=== PATIENT | male | born 1980 | race Caucasian/White ===

== ENCOUNTER 2025-03-04 08:20 | Outpatient (CLI) | payer OTHER, SELFPAY ==
--- OUTSIDE RECORDS SUMMARY | 2025-03-04 08:26 | XMS_ITS | Clinical Summary ---
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 Gender Identity Not on file Sexual Orientation Not on file Plan of Treatment Health Maintenance Due Date Last Done Comments Hepatitis C Virus (HCV) Screening 1982 TdaP Immunization 1982 Hepatitis B Immunization (1 of 3 - 19+ 3-dose series) 2001 Influenza Immunization (#1) 2024 SARS-COV-2 Immunization ( - 2023- season) 2024 Respiratory Syncytial Virus (RSV) Immunization (Adult) (1 - 1-dose 75+ series) 2057 Meningococcal Immunization (ACWY) Aged Out No longer eligible based on patient's age to complete this topic Pneumococcal Immunization Combined Aged Out No longer eligible based on patient's age to complete this topic Rotavirus Immunization Aged Out No lo nger eligible based on patient's age to complete this topic
--- OUTSIDE RECORDS SUMMARY | 2025-03-04 08:27 | XMS_ITS ---
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 Name Role Phone Juan Okeefe DO Primary Care Provider Heidi Moore Unavailable [phone] Allergies No Known Allergies Results Component Value Reference Range Notes UDT (Not yet reviewed by pro vider) Interpretation: Performing Lab: Notes/Report: THC n 0 - 50 ng/ml Cocaine n 0 - 300 ng/ml Amphetamine n 0 - 1000 ng/ml Buprenorphine (BUP) n 0 - 10 ng/ml Secobarbital (Bar) n 0 - 300 ng/ml Oxazepam (BZO) n 0 - 300 ng/ml 6-avtqaezioj-2,7-quojjvjh-5,3-diphenylpyrrolidine (PAUL P) n 0 - 300 ng/ml Methamphetamine (MET) n 0 - 1000 ng/ml Methylenedioxymethamphetamine (MDMA) n 0 - 500 ng/ml Morphine (MOP 300/[id number]) n 0 - 300 ng/ml Methadone (MTD) n 0 - 300 ng/ml Phencyclidine (PCP) n 0 - 25 ng/ml Nortriptyline (TCA) n 0 - 1000 ng/ml Oxycodone n 0 - 300 ng/ml x n 0 - 300 ng/ml REASON FOR VISIT 3 month f/u Medications Medication SIG (Take, Route, Frequency, Duration) Notes Start Date End Date Status Escitalopram Oxalate 20 MG 1 tablet Orally Once a day for 90 days increasing 03/03/2025 Active Jornay PM 60 MG 1 capsule in the evening Oral Once a day for 30 days 03/03/2025 04/02/2025 Active Social History Tobacco Use: Social History Observation Description Date Details (start date - stop date) Unknown Sex Assigned At : Social History Observation Description Sex Assigned At Male Household Question Answer Notes Marital status: Tobacco use other than smoking: Question Answer Notes Are you an other tobacco user? Yes Tobacco Control (Standard) Question Answer Notes Tobacco use: Uses tobacco in other forms When did you start smoking? 2000 When did you stop smoking? 06/02/2014 How long has it been since you last smoked? 5-10 years AUDIT-C (Standard) Question Answer Notes Did you have a drink contain ing alcohol in the past year? Yes How often did you have six o r more drinks on one occasion in the past year? Never (0 point) How many drinks did you have on a typical day when you were drinking in the past year? 1 or 2 drinks (0 point) How often did you have a dri nk containing alcohol in the past year? Monthly or less (1 point) Problems Problem Type SNOMED Code ICD Code Onset Dates Problem Status W/U Status Risk Notes Problem [id number] Major depressive disorder, single episode, mild (F32.0) Active confirmed Vital Signs Blood pressure systolic 156 mm Hg 03/03/20 25 Blood pressure diastolic 88 mm Hg 025 Heart Rate 76 /min 03/03/2025 Height 69.00 in 03/03/2025 Weight 256 lbs 03/03/2025 BMI 37.8 kg/m2 03/03/2025 Height-cm 175.26 cm 03/03/2025 Weight-kg 116.12 kg 03/03/2025 Encounters Encounter Location Date [facility] [address] [facility] [address] [place] [address] 03/03/2025 Heidi Brito Encounter for screening for depression Z13.31 ; Major depressive disorder, single episode, mild F32.0 ; Generalized anxiety disorder F41.1 ; Attention-deficit hyperactivity disorder, combined type F90.2 ; Insomnia, unspecified G47.00 ; Nicotine use Z72.0 ; Encounter for screening for cardiovascular disorders Z13.6 and Dietary counseling and surveillance Z71.3 Assessments Encounter Date Diagnosis (ICD Code) Assessment Notes Treatment Notes Treatment Clinical Notes Section Notes 03/03/2025 Encounter for screening for depression (ICD-10 - Z13.31) 03/03/2025 Major depressive disorder, single episode, mild (ICD-10 - F32.0) 03/03/2025 Generalized anxiety disorder (ICD-10 - F41.1) 03/03/2025 Attention-deficit hyperactivity disorder, combined type (ICD-10 - F90.2) 03/03/2025 Insomnia, unspecified (ICD-10 - G47.00) 03/03/2025 Nicotine use (ICD-10 - Z72.0) 03/03/2025 Encounter for screening for cardiovascular disorders (ICD-10 - Z13.6) 03/03/2025 Dietary counseling and surveillance (ICD-10 - Z71.3) 03/03/2025 Other Aj Trent, male patient with history of ADHD and depression, presents with concerns of increased sedentary behavior, mild mood symptoms, and sleep disturbances. Depressive symptoms Assessment: Patient reports increased sedentary behavior, decreased social engagement, and reduced participation in previously enjoyable activities such as exercise and music. While not explicitly feeling depressed, these symptoms suggest a possible mild depressive episode. Patient notes no specific cause and describes the symptoms as not dire or severe. Currently on escitalopram 10mg for depression management. Plan: - Increase escitalopram to 20mg PO daily - Dispense 90-day prescription to [place] [facility] - Patient instructed to break tablets in half and return to 10mg dose if unable to tolerate increase, and to call if this occurs - Follow-up in 3 months unless problems arise sooner Attention Deficit Hyperactivity Disorder (ADHD) Assessment: Patient has a history of ADHD and is currently managed on Jornay 60mg. Reports improved daytime alertness compared to 10-15 years ago when experiencing significant post-lunch fatigue. Attributes improvement to exercise and ADHD medication. Plan: - Continue Jornay 60mg Sleep disturbances Assessment: Patient reports new onset of waking in the middle of the night. notes new snoring, but patient denies feeling of gasping for air. At-home sleep study scheduled. Patient acknowledges need for weight loss, reporting recent weight gain. Plan: - Proceed with scheduled at-home sleep study Abnormal lab results Assessment: Recent labs from February [address] Calderon showed elevated white blood cell count, possibly attributed to allergies. Lipid panel revealed high LDL and low HDL cholesterol. Plan: - Follow-up blood work in 6 weeks as recommended by primary care Plan Of Treatment Medication Medication Name Sig Start Date Stop Date Notes Escitalopram Oxalate 10 MG 1 tablet at b edtime Orally Once a day Escitalopram Oxalate 20 MG 1 tablet Oral ly Once a day for 90 days 03/03/2025 increasing Jornay PM 60 MG 1 capsule in the benjamin antoinette Oral Once a day for 30 days 03/03/2025 04/02/2025 Pending Test Test Name Order Date UDT 03/03/2025 Next Appt Details Follow Up: 3 Months, Reason: Provider Name:Heidi lenz, 06/03/2025 09:30:00 AM, [address], [facility] [address], [place], [address], Progress Notes * AJ TRENTDOB: [birth year] (44 yo M)Acc No.[id number]:03/03/2025 Patient: AJ DOE Provider: Saad Brito :1980 A ge:44 Y S ex:Male Date:03/03/2025 Address:[address] [place], [place] [id number] Pcp:Juan Okeefe DO Subjective: * Chief Complaints: * 3 month f/u * HPI: H istory of Presenting Problem: 44 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 It is a reflection of a visit with the patient. It might have some inaccuracy, including medication names and transcribing errors, though efforts have been made to correct them. History of Present Illness Aj Trent, a male patient with a history of depression and ADHD, presents with concerns of increased sedentary behavior and feeling like he's on autopilot. He reports a recent decrease in activity levels and social engagement, noting he's been more antisocial, sitting around watching TV. While not explicitly feeling depressed, he acknowledges a change in his usual patterns of behavior. The patient describes a gradual onset of these symptoms, with no specific cause identified. He compares his current state to when he was happiest, which involved more exercise, playing music, and social interaction. The change in behavior is not described as severe, but rather something he has noticed recently. Aj also mentions new sleep disturbances, including waking up in the middle of the night, and feeling tired during the day. He describes this fatigue as being more subdued compared to the complete zombie feeling he experienced 10-15 years ago. Aj reports that his ADHD medication has helped with alertness in the past. He is currently taking escitalopram 10mg for depression and Jornay 60mg for ADHD. He mentions recently missing a couple of doses of escitalopram without noticing any difference. The patient denies experiencing side effects like weight gain or sexual problems with his current medication regimen. In terms of recent healthcare interactions, Aj had a visit with Dr. Calderon at Dr. Morgan's office on February 04 for blood work. He has an at-home sleep study scheduled due to recent snoring reported by his , though he denies feeling like he's gasping for air. The patient acknowledges a need to lose weight, mentioning he's been on an upswing recently. Medications and Supplements Patient is taking escitalopram 10mg and Jornay 60mg for ADHD. Patient reports missing a couple days of escitalopram recently without noticing any difference. No significant side effects from escitalopram, such as weight gain or sexual problems, which were experienced with previous medications. Patient did not notice a big effect from Lexapro (escitalopram), but was generally improving. The ADHD medication (Jornay) has helped with daytime alertness. Social History - Exercise: Recently more sedentary; previously exercised more frequently - Hobbies/Interests: Plays music, though less frequently than before; currently watching more TV - Social Interactions: Becoming more antisocial recently - Sleep: Waking up in the middle of the night (new occurrence); reports snoring (new) - Occupation: Experiences daytime fatigue, though less severe than 10-15 years ago Review of Systems General: Positive for fatigue, decreased physical activity. HEENT: Positive for snoring. Respiratory: Positive for possible sleep apnea symptoms. Neurological: Positive for daytime tiredness. Psychiatric: Positive for feeling down, antisocial behavior. C ontributing Factors: ongoing notes: Reports two past hospitalizations, for threatening suicide, or depression, not really suicidal, no attempts. [facility] Jun 2023 past meds:wellbutrin-past, doesn't recall effects; z oloft; adderall/concerta-not showing on UDS/conf;?qelbree N/V Trauma/abuse hx: Denied, I had a great childhood. hx, no combat, but in [place], no /wounds ADHD hx:Onset: c hildhood; A DHD inattention p oor ability to give close attention to details;?has difficulty sustaining attention in tasks; m akes careless mistakes at work; d oes not listen when spoken to directly; d oes not follow through on instructions; f ails to finish work; h as difficulty organizing tasks and activities; r eluctant to engage in tasks that require sustained mental effort; e asily distracted by extraneous stimuli; f orgetful in daily activities; procrastinate; C ontext: l ack of productivity at work; i ncreased anxiety. See past notes for further review -completed MUSA/RAMIREZ testing 05/11/22; t esting positive for combined type, did flag malingering, may just be severe impairment. D epression Screening: CATALINA-7 (2018 Edition) F eeling nervous, anxious, or on edge S everal days N ot being able to stop or control worrying?Several days W orrying too much about different things S everal days T rouble relaxing N ot at all B eing so restless that it is hard to sit still N ot at all B ecoming easily annoyed or irritable N ot at all F eeling afraid as if something awful might happen N ot at all T otal CATALINA-7 Score 3 I f you checked any problems, how difficult have they made it for you to do your work, take care of things at home, or get along with other people? N ot difficult at all I nterpretation of Total ( 0 to 4) No Anxiety C [place]-Suicide Severity Rating Scale: Suicide Risk (CSRS-screener) i n the past one month Have you wished you were or wished you could go to sleep and not wake up? N o i n the past one month Have you actually had any thoughts of killing yourself? N o H ave you ever done anything, started to do anything, or prepared to do anything to end your life? N o D epression screening: PHQ-9 L ittle interest or pleasure in doing things?Several days F eeling down, depressed, or hopeless S everal days T rouble falling or staying asleep, or sleeping too much S everal days F eeling tired or having little energy M ore than half the days P oor appetite or overeating N ot at all F eeling bad about yourself or that you are a failure, or have let yourself or your family down S everal T rouble concentrating on things, such as reading the newspaper or watching television S ever M oving or speaking so slowly that other people could have noticed; or the opposite, being so fidgety or restless that you have been moving around a lot more than usual N ot at all T houghts that you would be better off or of hurting yourself in some way N ot at all T otal Score 7 I nterpretation M ild Depression Intervention D epression Screening Findings P ositve F ollow-Up for Depression M ental health care management, Psychiatric follow-up S uicide Risk Assessment Performed 0 03/03/2025 __ date * Medical History: * Surgical History: T onsilectomy/adenoids 10/02/1990Appendectomy (90256) 10/02/1991Sinus surgery 10/02/2013 * Hospitalization/Major Diagno stic Procedure: * Family History: P aternal Uncle: Alcohol Abuse. M other: Major Depressive Episode. P aternal Grandfather: Alcohol Abuse. M aternal Grandmother: Major Depressive Episode. S on: Anxiety Disorder.? * Social History: T obacco Use: T obacco use other than smoking A re you an other tobacco user? Y es Tobacco Control (Standard) T obacco use: U ses tobacco in other forms W hen did you start smoking? W hen did you stop smoking? H ow long has it been since you last smoked??5-10 years M igrated Social History: M igrated Social History: Alcohol Intake: None 04/11/2022,Tobacco Years: Former smoker 04/11/2022. D rug/Alcohol: D rugs H ave you used drugs other than those for medical reasons in the past 12 months? N o AUDIT-C (Standard) D id you have a drink containing alcohol in the past year? Y es H ow often did you have six or more drinks on one occasion in the past year? N ever (0 point) H ow many drinks did you have on a typical day when you were drinking in the past year? 1 or 2 drinks (0 point) H ow often did you have a drink containing alcohol in the past year? M onthly or less (1 point) H ousehold: Alise ama Ta arital status: m arried M iscellaneous: S afety issues A re there any firearms in the house? 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 College * Medications: T akingJornay PM 60 MG Capsule Extended Release 24 Hour 1 capsule in the evening Oral Once a day , stop date 03/14/2025Escitalopram Oxalate 10 MG Tablet 1 tablet at bedtime Orally Once a day Medication List reviewed and reconciled with the patientTaking Jornay PM 60 MG Capsule Extended Release 24 Hour 1 capsule in the evening Oral Once a day , stop date 03/14/2025Taking Escitalopram Oxalate 10 MG Tablet 1 tablet at bedtime Orally Once a day Medication List reviewed and reconciled with the patient * Allergies: N .K.D.A.no[Allergies Verified] Objective: * Vitals: B P:156/88mm Hg, HR:76/min, Wt:256lbs, Wt-k.12 kg, Ht: 69.00 in, Ht-cm: 175.26 cm, BMI:37.8Index, Body Surface Area: 2.38. * Examination: P sychiatry: M ental Status Examination - Mood: Patient reports feeling down and more subdued recently, though not explicitly depressed. - Thought Process: Linear and goal-directed. - Cognition: Alert. Reports waking up in the middle of the night sometimes. Mentions feeling tired during the day, but not experiencing the complete zombie feeling he had in the past. - Insight: Fair. Recognizes changes in his behavior and mood, noting decreased activity levels and increased antisocial tendencies. - Judgment: Fair. Scheduled an at-home sleep study to address potential sleep issues. Laboratory, Imaging, and Diagnostic Test Results - Date: February 04, 2025 - CBC: WBC elevated (specific value not provided) - Lipid panel: LDL high, HDL low (specific values not provided). Assessment: * Assessment: 1. E ncounter for screening for depression - Z13.31 (Primary) 2 . M ajor depressive disorder, single episode, mild - F32.0 3 . G eneralized anxiety disorder - F41.1 4 . A ttention-deficit hyperactivity disorder, combined type - F90.2 5. I nsomnia, unspecified - G47.00 6 . N icotine use - Z72.0? 7. E ncounter for screening for cardiovascular disorders - Z13.6 ?8. D ietary counseling and surveillance - Z71.3 Plan: * Treatment: 2. A ttention-deficit hyperactivity disorder, combined type Refill Jornay PM Capsule Extended Release 24 Hour, 60 MG, 1 capsule in the evening, Oral, Once a day, 30 days, 30, Refills 0, Notes[facility]. 3. O raina Clinical Notes: Aj Trent, male patient with history of ADHD and depression, presents with concerns of increased sedentary behavior, mild mood symptoms, and sleep disturbances. Depressive symptoms Assessment: Patient reports increased sedentary behavior, decreased social engagement, and reduced participation in previously enjoyable activities such as exercise and music. While not explicitly feeling depressed, these symptoms suggest a possible mild depressive episode. Patient notes no specific cause and describes the symptoms as not dire or severe. Currently on escitalopram 10mg for depression management. Plan: - Increase escitalopram to 20mg PO daily - Dispense 90-day prescription to [place] [facility] - Patient instructed to break tablets in half and return to 10mg dose if unable to tolerate increase, and to call if this occurs - Follow-up in 3 months unless problems arise sooner Attention Deficit Hyperactivity Disorder (ADHD) Assessment: Patient has a history of ADHD and is currently managed on Jornay 60mg. Reports improved daytime alertness compared to 10-15 years ago when experiencing significant post-lunch fatigue. Attributes improvement to exercise and ADHD medication. Plan: - Continue Jornay 60mg Sleep disturbances Assessment: Patient reports new onset of waking in the middle of the night. notes new snoring, but patient denies feeling of gasping for air. At-home sleep study scheduled. Patient acknowledges need for weight loss, reporting recent weight gain. Plan: - Proceed with scheduled at-home sleep study Abnormal lab results Assessment: Recent labs from February [address] Calderon showed elevated white blood cell count, possibly attributed to allergies. Lipid panel revealed high LDL and low HDL cholesterol. Plan: - Follow-up blood work in 6 weeks as recommended by primary care * Labs: * L ab: UDT (Collection Date & Time - 03/03/2025) Value Reference Range T HC n 0 - 50 ng/ml * C ocaine n 0 - 300 ng/ml * A mphetamine n 0 - 1000 ng/ml * B uprenorphine (BUP) n 0 - 10 ng/ml * S ecobarbital (Bar) n 0 - 300 ng/ml * O xazepam (BZO) n 0 - 300 ng/ml * 2 -ethylidene-1,9-ajeffgqo-7,3-diphenylpyrrolidine (EDDP) n 0 - 300 ng/ml * M ethamphetamine (MET) n 0 - 1000 ng/ml * M ethylenedioxymethamphetamine (MDMA) n 0 - 500 ng/ml * M orphine (MOP 300/[id number]) n 0 - 300 ng/ml * M ethadone (MTD) n 0 - 300 ng/ml * P hencyclidine (PCP) n 0 - 25 ng/ml * N ortriptyline (TCA) n 0 - 1000 ng/ml * O xycodone n 0 - 300 ng/ml * x n 0 - 300 ng/ml * Procedure Codes: 9 6127 BEHAV ASSMT W/SCORE & DOCD/STAND [id number] Pt scrn tbco and id as [id number] PREHTN/HTN BP DOC INDCD F/U [id number] DRUG TST PRSMV READ INSTRMNT ASSTD DIR OPT [id number] MOST RECENT SYSTOLIC BP >= 140MM [id number] CLIN DEPRESSION SCREEN [id number] VISIT COMPLEXITY INHERENT TO ONGOING CARE RELATED TO A PATIENT'S SINGLE, SERIOUS CONDITION OR A COMPLEX CONDITION * Preventive Medicine: Counseling: B P Management: FIRST HYPERTENSIVE BP READING FOLLOW-UP PLAN: F ollow-up 1 month Follow up with your PCP LIFESTYLE RECOMMENDATION: L ifestyle education REFERRAL TO ALTERNATIVE / PRIMARY CARE PROVIDER: R jeffrey to general medical service WEIGHT REDUCTION RECOMMENDATION: W eight-reducing diet education DIETARY RECOMMENDATIONS: D iet education Dietary Healthy-Heart Diet C ommunication to patient: Counseled the Patient on tobacco use; cessation provided 0 03/03/2025 Counseled the Patient on smoking cessation; education provided 0 03/03/2025 Counseled the Patient on smoking effects; education provided 0 03/03/2025 Screenings: D epression screening Have you had a recent depression screening? Y es S moking Cessation counseling done Discuss the importance of quitting smoking. * Follow Up: 3 Months * Billing Information: * Visit Code: 61376 OFFICE OUTPATIENT VISIT 25 MINUTES DETAILED HISTORY AND EXAM/MODERATE MEDICAL DECISION MAKING. * Procedure Codes: 31742 BEHAV ASSMT W/SCORE & DOCD/STAND INSTRUMENT. G9902 Pt scrn tbco and id as user. G8950 PREHTN/HTN BP DOC INDCD F/U DOC. 62956 DRUG TST PRSMV READ INSTRMNT ASSTD DIR OPT OBS. G8753 MOST RECENT SYSTOLIC BP >= 140MM HG. G8431 CLIN DEPRESSION SCREEN DOC. G2211 VISIT COMPLEXITY INHERENT TO ONGOING CARE RELATED TO A PATIENT'S SINGLE, SERIOUS CONDITION OR A COMPLEX CONDITION. * Sign off status: Completed true * Provider: Saad Brito Date: 03/03/2025 Generated for Brittani wood/Kezia/Berkley on: 03/04/2025 08:26 AM CDT History and Physical Notes * HPI (History of Present Illness) Category Sub-Category Detail Notes Category Not es Depression screening PHQ-9 Little inte rest or pleasure in doing things: Several days Feeling down, depressed, or hopeless: Se veral days Trouble falling or staying asleep, or sl eeping too much: Several days Feeling tired or having little energy: M ore than half the days Poor appetite or overeating: Not at all Feeling bad about yourself o r that you are a failure, or have let yourself or your family down: Several days Trouble concentrating on thi ngs, such as reading the newspaper or watching television: Several days Moving or speaking so slowly that other people could have noticed; or the opposite, being so fidgety or restless that you have been moving around a lot more than usual: Not at all Thoughts that you would be b cinthya off or of hurting yourself in some way: Not at all Total Score: 7 Interpretation: Mild Depression Intervention Depression Screening Findings: P ositve Follow-Up for Depression: [facility] health care management, Psychiatric follow-up Suicide Risk Assessment Performed: 03/03 __ date Depression Screening CATALINA-7 (2018 Edition) Feelin g nervous, anxious, or on edge: Several days Not being able to stop or control worryi ng: Several days Worrying too much about different things : Several days Trouble relaxing: Not at all Being so restless that it is hard to sit still: Not at all Becoming easily annoyed or irritable: No t at all Feeling afraid as if something awful cholo ht happen: Not at all Total CATALINA-7 Score: 3 If you checked any problems, how difficult have they made it for you to do your work, take care of things at home, or get along with other people?: Not difficult at all Interpretation of Total: (0 to 4) No Anx iety Logan-Suicide Severity Rating Scale Suicide Risk (CSRS-screener) in the past one month Have you wished you were or wished you could go to sleep and not wake up?: No in the past one month Have y ou actually had any thoughts of killing yourself?: No Have you ever done anything, started to do anything, or prepared to do anything to end your life?: No Examination Category Sub-Category Detail Notes Category Not es Psychiatry Mental Status Examination - Mood: Patient reports feeling down and more subdued recently, though not explicitly depressed. - Thought Process: Linear and goal-directed. - Cognition: Alert. Reports waking up in the middle of the night sometimes. Mentions feeling tired during the day, but not experiencing the complete zombie feeling he had in the past. - Insight: Fair. Recognizes changes in his behavior and mood, noting decreased activity levels and increased antisocial tendencies. - Judgment: Fair. Scheduled an at-home sleep study to address potential sleep issues. Laboratory, Imaging, and Diagnostic Test Results - Date: February 04, 2025 - CBC: WBC elevated (specific value not provided) - Lipid panel: LDL high, HDL low (specific values not provided)
--- OUTSIDE RECORDS SUMMARY | 2025-03-04 08:27 | XMS_ITS | Patient Health Record ---
Author Organization [facility] [employer] 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 Role Phone Juan Okeefe DO Primary Care Provider Heidi Moore Unavailable [phone] Fatmata Yanely Unavailable [phone] Yulsia Jones Unavailable [phone] Allergies No Known Allergies Results Component Value Reference Range Notes UDT Reviewed date:09/04/2024 05:26:55 PM Interpretation: Performing Lab: Notes/Report: THC n 0 - 50 ng/ml Cocaine n 0 - 300 ng/ml Amphetamine n 0 - 1000 ng/ml Buprenorphine (BUP) n 0 - 10 ng/ml Secobarbital (Bar) n 0 - 300 ng/ml Oxazepam (BZO) n 0 - 300 ng/ml 5-yojuyowctj-8,0-fznuzhah-2, 3-dipheny lpyrrolidine (EDDP) n 0 - 300 ng/ml Methamphetamine (MET) n 0 - 1000 ng/ml Methylenedioxymethamphetamine (MDMA) n 0 - 500 ng/ml Morphine (MOP 300/YQF1614) n 0 - 300 ng/ml Methadone (MTD) n 0 - 300 ng/ml Phencyclidine (PCP) n 0 - 25 ng/ml Nortriptyline (TCA) n 0 - 1000 ng/ml Oxycodone n 0 - 300 ng/ml x n 0 - 300 ng/ml DRUG MONITOR,METHYLPHENID ME TAB, QN, URINE (02445) Reviewed date:09/30/2024 09:54:25 PM Interpretation: Performing Lab:[facility]IS[facility], [facility] [address] [facility], [place] [id number] Rajan Samuels, Director - [address] [facility] Notes/Report: FASTING: NO Ritalinic Acid NEGATIVE <100 ng/mL Ritalinic Acid Comments See LDT Notes Notes and Comments This drug testing is for medical treatment only. Analysis was performed as non-forensic testing and these results should be used only by healthcare providers to render diagnosis or treatment, or to monitor progress of medical conditions. LDT Notes: Confirmation tests were developed and their analytical performance characteristics have been determined by [facility]. It has not been cleared or approved by the FDA. This assay has been validated pursuant to the CLIA regulations and is used for clinical purposes. Healthcare Providers needing Interpretation assistance, please contact us at [phone] ( ) M-F, 8am to 10pm EST UDT (Not yet reviewed by pro vider) Interpretation: Performing Lab: Notes/Report: THC n 0 - 50 ng/ml Cocaine n 0 - 300 ng/ml Amphetamine n 0 - 1000 ng/ml Buprenorphine (BUP) n 0 - 10 ng/ml Secobarbital (Bar) n 0 - 300 ng/ml Oxazepam (BZO) n 0 - 300 ng/ml 8-xvrkitnqib-3,1-pajyxdco-5, 3-dipheny lpyrrolidine (EDDP) n 0 - 300 ng/ml Methamphetamine (MET) n 0 - 1000 ng/ml Methylenedioxymethamphetamine (MDMA) n 0 - 500 ng/ml Morphine (MOP 300/AFG5159) n 0 - 300 ng/ml Methadone (MTD) n 0 - 300 ng/ml Phencyclidine (PCP) n 0 - 25 ng/ml Nortriptyline (TCA) n 0 - 1000 ng/ml Oxycodone n 0 - 300 ng/ml x n 0 - 300 ng/ml Reason For Referral No Information Medications Medication SIG (Take, Route, Frequency, Duration) Notes Start Date End Date Status Escitalopram Oxalate 20 MG 1 tablet Orally Once a day for 90 days increasing 03/03/2025 Active Jornay PM 60 MG 1 capsule in the evening Oral Once a day for 30 days 03/03/2025 04/02/2025 Active Immunizations Vaccine Route Administration Date Status Kg nts [place] Covid-19 Vaccine Unknown 12/07/2020 Administere d Moderna Covid-19 Vaccine 1st dose Unknown 09/15/2021 Ad ministered Moderna Covid-19 Vaccine 1st dose Unknown 10/13/2021 Ad ministered Pfizer Biontech Covid-19 Vac cine 2nd dose Unknown 05/19/2021 Administered Pfizer Biontech Covid-19 Vac cine 2nd dose Unknown 06/09/2021 Administered Pfizer Biontech Covid-19 Vac cine 2nd dose Unknown 03/30/2022 Administered Social History Tobacco Use: Social History Observation [...] past year? Monthly or less (1 point) Section Notes: Substance UseDo you or have you ever smoked tobacco?: Former smokerHow much tobacco do you smoke?: NoneWhen did you quit smoking?: 6-10 years since last cigaretteDo you or have you ever used any other forms of tobacco or nicotine?: YesDo you or have you ever used e-cigarettes or vape?: Current user of electronic cigarettesWhat was the date of your most recent tobacco screening?: 02/06/2024Has tobacco cessation counseling been provided?: NoWhat is your level of alcohol consumption?: NoneHow many years have you consumed alcohol?: 20Do you use any illicit or recreational drugs?: NoWhich illicit or recreational drugs have you used?: cannabis in the pastHave you used IV drugs?: NoWhat is your level of caffeine consumption?: ModerateEducation and OccupationWhat is the highest grade or level of school you have completed or the highest degree you have received?: Bachelor's degree (e.g., BA, AB, BS)Are you currently employed?: YesWho is your employer?: [employer], [employer]Marriage and SexualityWhat is your relationship status?: MarriedAre you sexually active?: YesDo you use protection during sex?: NoHow many children do you have?: 2Home and EnvironmentAre there any guns present in your home?: NoAdvance DirectiveDo you have an advance directive?: NoDo you have a medical power of trial attorney?: NoGender Identity and LGBTQ IdentityAssigned sex at : MaleFirst name used: RAYMOND Substance UseDo you or have you ever smoked tobacco?: Former smokerHow much tobacco do you smoke?: NoneWhen did you quit smoking?: 6-10 years since last cigaretteDo you or have you ever used any other forms of tobacco or nicotine?: YesDo you or have you ever used e-cigarettes or vape?: Current user of electronic cigarettesWhat was the date of your most recent tobacco screening?: 02/06/2024Has tobacco cessation counseling been provided?: NoWhat is your level of alcohol consumption?: NoneHow many years have you consumed alcohol?: 20Do you use any illicit or recreational drugs?: NoWhich illicit or recreational drugs have you used?: cannabis in the pastHave you used IV drugs?: NoWhat is your level of caffeine consumption?: ModerateEducation and OccupationWhat is the highest grade or level of school you have completed or the highest degree you have received?: Bachelor's degree (e.g., BA, AB, BS)Are you currently employed?: YesWho is your employer?: [employer], [employer]Marriage and SexualityWhat is your relationship status?: MarriedAre you sexually active?: YesDo you use protection during sex?: NoHow many children do you have?: 2Home and EnvironmentAre there any guns present in your home?: NoAdvance DirectiveDo you have an advance directive?: NoDo you have a medical power of trial attorney?: NoGender Identity and LGBTQ IdentityAssigned sex at : MaleFirst name used: RAYMOND Substance UseDo you or have you ever smoked tobacco?: Former smokerHow much tobacco do you smoke?: NoneWhen did you quit smoking?: 6-10 years since last cigaretteDo you or have you ever used any other forms of tobacco or nicotine?: YesDo you or have you ever used e-cigarettes or vape?: Current user of electronic cigarettesWhat was the date of your most recent tobacco screening?: 02/06/2024Ha tobacco cessation counseling been provided?: NoWhat is your level of alcohol consumption?: NoneHow many years have you consumed alcohol?: 20Do you use any illicit or recreational drugs?: NoWhich illicit or recreational drugs have you used?: cannabis in the pastHave you used IV drugs?: NoWhat is your level of caffeine consumption?: ModerateEducation and OccupationWhat is the highest grade or level of school you have completed or the highest degree you have received?: Bachelor's degree (e.g., BA, AB, BS)Are you currently employed?: YesWho is your employer?: [employer], [employer]Marriage and SexualityWhat is your relationship status?: MarriedAre you sexually active?: YesDo you use protection during sex?: NoHow many children do you have?: 2Home and EnvironmentAre there any guns present in your home?: NoAdvance DirectiveDo you have an advance directive?: NoDo you have a medical power of trial attorney?: NoGender Identity and LGBTQ IdentityAssigned sex at : MaleFirst name used: RAYMOND How much tobacco do you smoke?: NoneWhen did you quit smoking?: 6-10 years since last cigaretteDo you or have you ever used any other forms of tobacco or nicotine?: YesDo you or have you ever used e-cigarettes or vape?: Current user of electronic cigarettes What was the date of your most recent tobacco screening?: 02/06/2024 tobacco cessation counseling been provided?: NoWhat is your level of alcohol consumption?: NoneHow many years have you consumed alcohol?: 20Do you use any illicit or recreational drugs?: NoWhich illicit or recreational drugs have you used?: cannabis in the pastHave you used IV drugs?: NoWhat is your level of caffeine consumption?: ModerateEducation and OccupationWhat is the highest grade or level of school you have completed or the highest degree you have received?: Bachelor's degree (e.g., BA, AB, BS)Are you currently employed?: YesWho is your employer?: [employer], [employer]Marriage and SexualityWhat is your relationship status?: MarriedAre you sexually active?: YesDo you use protection during sex?: NoHow many children do you have?: 2Home and EnvironmentAre there any guns present in your home?: NoAdvance DirectiveDo you have an advance directive?: NoDo you have a medical power of trial attorney?: NoGender Identity and LGBTQ IdentityAssigned sex at : MaleFirst name used: RAYMOND Problems Problem Type SNOMED Code ICD Code Onset Dates Problem Status W/U Status Risk Notes Problem [id number] Major depressive disorder, single episode, mild (F32.0) Active confirmed Problem Generalized anxiety disorder (28066295) Generalized anxiety disorder (F41.1) 02/14/20 24 Active confirmed Problem Attention deficit hyperactivity disorder, combined type (99829262) Attention-deficit hyperactivity disorder, combined type (F90.2) 02/14/20 24 Active confirmed Problem Insomnia, unspecified (G47.00) Active confirmed Vital Signs Heart Rate 76 /min 03/03/2025 Height-cm 175.26 cm 03/03/2025 Blood pressure diastolic 88 mm Hg 03/03/2025 Weight-kg 116.12 kg 03/03/2025 Height 69.00 in 03/03/2025 Blood pressure systolic 156 mm Hg 03/03/2025 Weight 256 lbs 03/03/2025 BMI 37.8 kg/m2 03/03/2025 Encounters Encounter Location Date Provider Diagnosis [facility] [address] [place] [address] 03/15/2024 Yanely Avilez Attention-deficit hyperactivity disorder, combined type F90.2 and Generalized anxiety disorder F41.[address] [employer] [facility] [address] [place] [address] 05/07/2024 Yulisa Jones Generalized anxiety disorder F41.1 and Attention-deficit hyperactivity disorder, combined type F90.2 [facility] [address] [place] [address] 05/29/2024 Yanely Avilez Attention-deficit hyperactivity disorder, combined type F90.2 and Generalized anxiety disorder F41.1 [facility] [address] [facility] [address] [place] [address] 09/03/2024 Heidi Brito Attention-deficit hyperactivity disorder, combined type F90.2 and Generalized anxiety disorder F41.1 [facility] [address] [place] [address] 12/02/2024 Heidi Brito Attention-deficit hyperactivity disorder, combined type F90.2 ; Generalized anxiety disorder F41.1 ; Insomnia, unspecified G47.00 ; Encounter for screening for cardiovascular disorders Z13.6 and Encounter for screening for depression Z13.31 [place] [address] [facility] [address] [place] [address] 03/03/2025 Heidi Brito Encounter for screening for depression Z13.31 ; Major depressive disorder, single episode, mild F32.0 ; Generalized anxiety disorder F41.1 ; Attention-deficit hyperactivity disorder, combined type F90.2 ; Insomnia, unspecified G47.00 ; Nicotine use Z72.0 ; Encounter for screening for cardiovascular disorders Z13.6 and Dietary counseling and surveillance Z71.3 [facility], [facility] [address] [address] 03/07/2024 Yulisa Jones [facility], [place] [address] [facility] [address] [place] [address] 04/09/2024 Yulisa Jones [facility], [facility] [address] [facility] [address] [place] [address] 05/01/2024 Yulisa Jones [facility], [facility] [address] [place] [address] 06/17/2024 Yulisa Jones Attention-deficit hyperactivity disorder, combined type F90.2 [facility], [facility] [address] [place] [address] 07/15/2024 Yulisa Jones [facility], [facility] [address] [place] [address] 07/15/2024 Yulisa Jones Attention-deficit hyperactivity disorder, combined type F90.2 [place] [address] [facility] [address] [place] [address] 07/17/2024 Yulisa Karen Attention-deficit hyperactivity disorder, combined type F90.2 [facility] [address] [facility] [address] [place] [address] 07/30/2024 Yulisa Gastelumarneljesus Generalized anxiety disorder F41.1 [place] [address] [address] 08/15/2024 Heidi Hagopian Attention-deficit hyperactivity disorder, combined type F90.2 [place] [address] [address] 10/14/2024 Heidi Hagopian Attention-deficit hyperactivity disorder, combined type F90.2 [place] [address] [address] 11/08/2024 Heidi Hagopian Generalized anxiety disorder F41.1 [place] [address] [address] 11/08/2024 Heidi Hagopian Attention-deficit hyperactivity disorder, combined type F90.2 [place] [address] [address] 01/13/2025 Heidi Hagopian Attention-deficit hyperactivity disorder, combined type F90.2 [place] [address] [address] 02/11/2025 Heidi Hagopian Attention-deficit hyperactivity disorder, combined type F90.2 and Generalized anxiety disorder F41.1 Assessments Encounter Date Diagnosis (ICD Code) Assessment Notes Treatment Notes Treatment Clinical Notes Section Notes 05/07/2024 Generalized anxiety disorder (ICD-10 - F41.1) cont lexapro 10mg qhs-[facility] cont therapy unable to provide UDT sample today; did not get last UDS conf back-had issues with the lab closing suddenly, may be d/t that stable; cont current meds, education provided schedule therapy f/u 3 months, earlier if concerns 05/07/2024 Attention-deficit hyperactivity disorder, combined type (ICD-10 - F90.2) cont Jornay PM 60mg q evening-send to [facility] 05/29/2024 Generalized anxiety disorder (ICD-10 - F41.1) 05/29/2024 Attention-deficit hyperactivity disorder, combined type (ICD-10 - F90.2) 06/17/2024 Attention-deficit hyperactivity disorder, combined type (ICD-10 - F90.2) 07/15/2024 Attention-deficit hyperactivity disorder, combined type (ICD-10 - F90.2) 07/17/2024 Attention-deficit hyperactivity disorder, combined type (ICD-10 - F90.2) 07/30/2024 Generalized anxiety disorder (ICD-10 - F41.1) 08/15/2024 Attention-deficit hyperactivity disorder, combined type (ICD-10 - F90.2) 09/03/2024 Attention-deficit hyperactivity disorder, combined type (ICD-10 - F90.2) Assessment and Plan: 1. ADHD: - stable, no concerns - Plan: Continue Jornay PM 60 mg daily 2. Anxiety: - stable, reports improvement from before, especially after starting a new job. - some social anxiety, manageable, not problematic - Plan: Continue Lexapro 10 mg daily 3. Depression: - Stable, occasional low moods, but not problematic like before. - Plan: Continue lexapro as above BP noted to be elevated, monitor during next visits Encouraged to continue therapy as needed. Follow up in three months, sooner if concerns arise. 10/14/2024 Attention-deficit hyperactivity disorder, combined type (ICD-10 - F90.2) 11/08/2024 Generalized anxiety disorder (ICD-10 - F41.1) 11/08/2024 Attention-deficit hyperactivity disorder, combined type (ICD-10 - F90.2) 12/02/2024 Generalized anxiety disorder (ICD-10 - F41.1) 12/02/2024 Attention-deficit hyperactivity disorder, combined type (ICD-10 - F90.2) 02/11/2025 Attention-deficit hyperactivity disorder, combined type (ICD-10 - F90.2) 03/03/2025 Major depressive disorder, single episode, mild (ICD-10 - F32.0) 01/13/2025 Attention-deficit hyperactivity disorder, combined type (ICD-10 - F90.2) 03/03/2025 Encounter for screening for depression (ICD-10 - Z13.31) 03/15/2024 Generalized anxiety disorder (ICD-10 - F41.1) 03/15/2024 Attention-deficit hyperactivity disorder, combined type (ICD-10 - F90.2) 02/11/2025 Generalized anxiety disorder (ICD-10 - F41.1) 03/03/2025 Generalized anxiety disorder (ICD-10 - F41.1) 12/02/2024 Insomnia, unspecified (ICD-10 - G47.00) 09/03/2024 Generalized anxiety disorder (ICD-10 - F41.1) Assessment and Plan: 1. ADHD: - stable, no concerns - Plan: Continue Jornay PM 60 mg daily 2. Anxiety: - stable, reports improvement from before, especially after starting a new job. - some social anxiety, manageable, not problematic - Plan: Continue Lexapro 10 mg daily 3. Depression: - Stable, occasional low moods, but not problematic like before. - Plan: Continue lexapro as above BP noted to be elevated, monitor during next visits Encouraged to continue therapy as needed. Follow up in three months, sooner if concerns arise. 03/03/2025 Attention-deficit hyperactivity disorder, combined type (ICD-10 - F90.2) 03/03/2025 Insomnia, unspecified (ICD-10 - G47.00) 12/02/2024 Encounter for screening for cardiovascular disorders (ICD-10 - Z13.6) 12/02/2024 Encounter for screening for depression (ICD-10 - Z13.31) 03/03/2025 Nicotine use (ICD-10 - Z72.0) 03/03/2025 Encounter for screening for cardiovascular disorders (ICD-10 - Z13.6) 03/03/2025 Dietary counseling and surveillance (ICD-10 - Z71.3) 12/02/2024 Stvee Trent presents with insomnia, reporting difficulty maintaining sleep for the past few weeks, along with recent onset of snoring and possible sleep apnea symptoms. InsomniaAssessme nt: Patient reports waking up in the middle of the night and being unable to fall back asleep for 1-2 hours, occurring most nights for the past few weeks. Sleep onset appears intact, but sleep maintenance is disrupted. Patient typically wakes around 3 AM and cannot fall back asleep until 4-4:30 AM, with a required wake time of 6 AM. Total sleep time has decreased from 7-8 hours to approximately 4 hours per night. Contributing factors may include use of electronic devices upon waking and daytime napping on weekends. Caffeine consumption in the middle of the day may also be impacting sleep quality.Plan:- Recommend sleep hygiene improvements, including avoiding phone use when waking at night- Advise against daytime napping and reducing caffeine intake, especially later in the day- Encourage increased physical activity, such as running, as patient expressed interest- Follow up with primary care physician regarding snoring and possible sleep apnea evaluation Possible Sleep ApneaAssessment: Patient reports new onset of snoring as observed by his . He also mentions occasional wheezing. These symptoms, combined with the reported sleep disturbances, suggest the possibility of sleep apnea. Further evaluation is needed to confirm this diagnosis.Plan:- Advised patient to discuss snoring and possible sleep apnea with primary care physician at upcoming appointment in two weeks- Consider sleep study if recommended by primary care physician Attention Deficit Hyperactivity Disorder (ADHD)Assessment : Patient reports improvement in ADHD symptoms with current medication regimen. Jornay has been effective in managing daytime alertness and work performance. Previously, patient experienced near-dozing episodes during the day, which have now resolved.Plan:- Continue Jornay at current dose (dose not specified)- Refill Jornay prescription to be sent to [facility] pharmacy AnxietyAssessmen t: Patient reports occasional anxiety, but describes it as not debilitating. Current medication appears to be managing symptoms adequately.Plan: - Continue escitalopram at current dose (dose not specified)- Refill escitalopram prescription to be sent to [facility] pharmacy- Schedule follow-up appointment in 3 months 03/03/2025 Steve Trent, male patient with history of ADHD [...] PO daily - Dispense 90-day prescription to [place] [facility] - Patient instructed to break tablets [...] recommended by primary care Plan Of Treatment Pending Test Test Name Order Date UDT 03/03/2025 Next Appt Details Provider Name:Heidi lenz, 06/03/2025 09:30:00 AM, [facility] [facility] [address], [place], [address], Insurance Providers Payer Name Payer Address Payer Phone Subscriber Number Group Number Insured Name Patient Relationship to Insured Coverage Start Date Coverage End Date [facility] - [employer] [address] [place] [address] [id number] 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
[2025-03-24 14:11] VITALS: BMI 36.1
--- NOTE | 2025-03-24 14:11 | P.SLEEP_ITS ---
Sleep Study - Home Unattended Date of Study: 03/04/25 Ordering Provider: Connie Newsome NP Interpreting Provider: Francia Box, DO Home Sleep Study Type: Watch PAT Height: 1.75 m Weight: 111.13 kg Body Mass Index: 36.1 Neck Circumference (inches): 16 [place]: 3 Reason for Sleep Study Difficulty staying asleep Sleep History The patient is a 44-year-old that had a sleep study ordered by his primary care for evaluation of sleep apnea. The patient denies snoring loudly. He denies interruptions in breathing while asleep. He denies choking or gasping at night. He denies having trouble breathing on his back. He denies morning headaches. He denies having a dry or sore mouth/ throat in the morning. He does have nocturnal heartburn. He denies nocturia. He denies having difficulty falling asleep. He does have difficulty returning to sleep if he wakes up throughout the night. He denies any hypnotic or sedative use. Denies feeling anxious about sleep. He does feel tired or sleepy during the day. He does feel tired in the morning. He does have the urge to fall asleep during the day. He denies feeling drowsy while driving. He denies sleep paralysis, cataplexy and hypnagogic/ hypnopompic hallucinations. He does clench or grind his teeth. He denies kicking or jerking his legs excessively. He denies having a restless feeling in his legs. He goes to bed at 11:00 p.m. on work days and at 11:45 p.m. on his days off. It takes him 15 minutes to fall asleep on work days and 30 minutes on his days off. He gets 6 hours of sleep on work days and 7 hours and 45 minutes on his days off. His sleep is somewhat restorative on his days off. He does take planned naps in the morning that are 1-2 hours in length and are restorative. He denies dream enactment behavior. He denies sleep walking. He consumes 3-4 cups of caffeinated beverage per day. He denies tobacco and alcohol use. He denies exercising on a weekly basis. [facility] Past Medical History Medical History ADD (attention deficit disorder) GERD (gastroesophageal reflux disease) Anxiety Allergies Surgical History Surgical History H/O nasal septoplasty H/O vasectomy Family History Family History Grandparent Alcoholism Cancer Depression Anxiety Father Hypertension Son Asthma Sibling Asthma Social History Social History Smoking status: Former smoker (vapes) Tobacco type: e-cigarettes/vaping Alcohol intake: current Alcohol use details: rarely, maybe once a month-beer, whisky Substance use: current Substance use type: marijuana Living arrangements: with family Occupation/Education: occupation 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 Medications Home Medications ?Medication ?Instructions ?Recorded ?Confirmed ?Type cetirizine 10 mg tablet (Zyrtec) 10 mg PO DAILY PRN 03/28/22 02/04/25 History escitalopram oxalate [Lexapro] 1 tablet PO DAILY 02/04/25 02/04/25 History methylphenidate HCl 60 mg 60 mg PO QPM 02/04/25 02/04/25 History capsule,delayed release,ext release sprinkle (Jornay PM) Sleep Procedure The sleep study was completed using [employer] a technically adequate device with seven channels: peripheral arterial tone, actigraphy, body position, snore, respiratory movement, pulse oximetry, sleep staging, and heart rate. Prior to using the device, the patient received verbal and written instructions for its application and was provided with the help desk phone number for additional telephonic instruction with 24-hour availability of qualified personnel to answer questions. The study was scored using CMS guidelines. Sleep Architecture The total recording time is 8 hrs, 59 min. The total sleep time is 7 hrs, 32 min. Sleep latency is 16 minutes. REM latency is 148 minutes. The patient had 14 episodes of waking. Sleep architecture shows 13.3% deep sleep, 69.4% light sleep, and (as % Total Sleep Time) showed NREM (Light 69.4%; Deep 13.3%), and a 17.4% stage REM. The patient spent 34.8% of total sleep time in the supine position. Sleep efficiency was 83.86. Respiratory Analysis The overall AHI (pAHI 4%:) is 3.5. The overall AHI (pAHI 3%:) is 11.5. The central AHI is 1.3. The AHI was 9.2 in NREM and 22.3 in REM sleep. The AHI was 8.4 in Supine and 13.2 in Non-supine sleep. Percent of [place] respirations is 0.0. Oximetry Data The oxygen desaturation index (KRISTI 4%:) is 3.5. The mean saturation is 93%, and the lowest saturation is 86%. Time spent with saturation < 88% is 0.7 minutes. Snoring Profile Snoring average intensity is 40 dB. The patient snored above 45 decibels for 13.1 minutes, 2.9% of sleep time. Cardiac Profile The average pulse rate is 62 beats per minutes. The lowest pulse rate is 41 bpm. The highest pulse rate reported is 97 bpm. Atrial fibrillation was not detected. Premature beats occur <0.1 per minute. Assessment and Plan Assessment and Plan (1) Sleep disturbances: Code(s): G47.9 - Sleep disorder, unspecified Status: Acute Assessment and Plan: The patient had an overall AHI of 3.5 with desaturation down to 86%. This is not consistent with sleep disordered breathing. If there are further concerns for a sleep disorder, I recommend the patient have a split study with the use of a hypnotic to ensure we obtain enough sleep data. Data The data obtained during this sleep study is adequate for interpretation. Certification This sleep study has been reviewed by a board certified sleep medicine physician.
== END 2025-03-05 12:54 | disposition home or self-care (01) ==
PROVIDERS: PCP Nurse Practitioner; Visit Provider Nurse Practitioner
DX: G47.9 Sleep disorder, unspecified (principal); R40.0 Somnolence
CPT/HCPCS: 95800